=== PATIENT | male | born 1955 | race Caucasian/White ===

== ENCOUNTER 2016-10-24 16:03 | Inpatient (IN) | payer MEDICARE, MEDICAID ==
[~2016-10-24 16:03] MED LIST: Diltiazem 30 mg Tab PO SCH
[2016-10-24 16:23] VITALS: BP 138/95
[2016-10-24] MEDS ORDERED: Potassium Chloride Elixir 20 mEq /15 mL UDC PO ONE (16:43)
[2016-10-24] MEDS ORDERED: Potassium Chloride Elixir 20 mEq /15 mL UDC GT ONE (16:43)
--- NOTE | 2016-10-24 16:46 | ED Physician Chart ---
Chief Complaint/HPI - Patient Information Date Seen:: 10/24/16 Time Seen:: 16:33 Chief Complaint:: LOW POTASSIUM History of Present Illness:: THIS IS A 60 YO MALE WHO WAS SENT HERE FOR EVALUATION AND TREATMENT OF HIS LOW POTASSIUM. HE STATES THAT HE HAS HYPERTENSION, DIABETES MELLITUS, COPD, MAJOR DEPRESSIVE DISORDER AND HEART DISEASE. HE SMOKES AND STATES THAT HE HAS SIGNIFICANT HEART DISEASE. HE HAS IN THE PAST ABUSED ALCOHOL. TODAY HE HAS NO CHEST PAIN OR ABDOMINAL PAIN. Allergies:: Allergies Allergy/AdvReac Type Severity Reaction Status Date / Time No Known Allergies Allergy Verified 10/24/16 16:17 Vitals:: Vital Signs - 8 hr 10/24/16 16:23 BP 138/95 Historian:: Patient, Medical Records Review:: Nurse's Note Reviewed, Transfer documents Reviewed Review of Systems - Review of Systems General/Constitutional: No fever, No chills, No weight loss, No weakness, No diaphoresis, No edema, No loss of appetite Skin: No skin lesions, No rash, No bruising Head: No headache, No light-headedness Eyes: No loss of vision, No pain, No diplopia ENT: No earache, No nasal drainage, No sore throat, No tinnitus Neck: No neck pain, No swelling, No thyromegaly, No stiffness, No mass noted Cardio Vascular: No chest pain, No palpitations, No PND, No orthopnea, No edema Pulmonary: No SOB, No cough, No sputum, No wheezing GI: No nausea, No vomiting, No diarrhea, No pain, No melena, No hematochezia, No constipation, No hematemesis G/U: No dysuria, No frequency, No hematuria Musculoskeletal: No bone or joint pain, No back pain, No muscle pain Endocrine: No polyuria, No polydipsia Psychiatric: No prior psych history, No depression, No anxiety, No suicidal ideation Hematopoietic: No bruising, No lymphadenopathy Allergic/Immuno: No urticaria, No angioedema Neurological: No syncope, No focal symptoms, No weakness, No paresthesia, No headache, No seizure, No dizziness, No confusion, No vertigo Past Medical History - Past Medical History Obtainable: Yes Past Medical History: HTN, DM, CAD, Asthma/COPD, Dyslipidemia, Dementia Family History: Heart disease, Diabetes [place] Social History: Smoker, Alcohol, No Drug Use Surgical History: other (MULTIPLE SURGERIES OF THE RIGHT LOWER LEG.) Psychiatricy History: Depression Family Medical History - Family Member Mother History Unknown: Yes Physical Exam - Physical Examination General/Constitutional: Awake, Well-developed, well-nourished, Alert, No distress, GCS 15, Non-toxic appearing, Ambulatory Head: Atraumatic Eyes: Lids, conjuctiva normal, PERRL, EOMI Skin: Nl inspection, No rash, No skin lesions, No ecchymosis, Well hydrated, No lymphadenopathy ENMT: External ears, nose nl, Nasal exam nl, Lips, teeth, gums nl Neck: Nontender, Full ROM w/o pain, No JVD, No nuchal rigidity, No bruit, No mass, No stridor Respiratory: Nl effort/Exclusion, Clear to Auscultation, No Wheeze/Rhonchi/Rales Cardio Vascular: RRR, No murmur, gallop, rubs, NL S1 S2 GI: No tenderness/rebounding/guarding, No organomegaly, No hernia, Normal BS's, Nondistended, No mass/bruits, No McBurney tenderness : No CVA tenderness Extremities: No tenderness or effusion, Full ROM, normal strength in all extremities, No edema, Normal digits & nails Neuro/Psych: Alert/oriented, DTR's symmetric, Normal sensory exam, Normal motor strength, Judgement/insight normal, Mood normal, Normal gait, No focal deficits Misc: normal gait, Normal back, No paraspinal tenderness Labs/Radiology/EKG Results - Lab Results Results: Laboratory Results - last 24 hr 10/24/16 10/24/16 10/24/16 16:50 16:50 16:50 WBC 12.5 H RBC 5.84 H Hgb 17.2 Hct 50.7 H MCV 86.9 MCH 29.5 MCHC Differential 34.0 RDW 14.2 Plt Count 244 MPV 8.5 Neutrophils % 60.4 Lymphocytes % 27.3 Monocytes % 10.8 H Eosinophils % 1.0 Basophils % 0.5 PTT (Actin FS) 23.9 L Sodium 135 L Potassium 2.5 L* Chloride 91 L Carbon Dioxide 34.9 H Anion Gap 11.6 BUN 24 Creatinine 1.3 Est GFR ( Amer) > 60.0 Est GFR (Non-Af Amer) 59.6 BUN/Creatinine Ratio 18.5 Glucose 123 H Calcium 10.2 Total Bilirubin 1.4 H AST 25 ALT 17 Alkaline Phosphatase 111 H Troponin I Total Protein 8.1 Albumin 4.7 Globulin 3.4 Albumin/Globulin Ratio 1.4 10/24/16 16:50 WBC RBC Hgb Hct MCV MCH MCHC Differential RDW Plt Count MPV Neutrophils % Lymphocytes % Monocytes % Eosinophils % Basophils % PTT (Actin FS) Sodium Potassium Chloride Carbon Dioxide Anion Gap BUN Creatinine Est GFR ( Amer) Est GFR (Non-Af Amer) BUN/Creatinine Ratio Glucose Calcium Total Bilirubin AST ALT Alkaline Phosphatase Troponin I 0.02 Total Protein Albumin Globulin Albumin/Globulin Ratio - Radiology Results Results: CHEST X-RAY = FINDING CONSISTENT WITH COPD - EKG Interpretations EKG Time:: 16:33 Rhythm: SINUS [place]: LEFT AXIS Rate: 74 Comments:: POOR R WAVE PROGRESSION IN THE LATERAL LEADS ED Septic Shock - . Is Septic Shock (SBP<90, OR Lactate>4 mmol\L) present?: No - <6hrs of presentation: Vital Signs: Vital Signs - 8 hr 10/24/16 16:23 BP 138/95 Reassessment (Disposition) - Reassessment Reassessment Condition:: Unchanged - Diagnosis Diagnosis:: HYPOKALEMIA ELEVATED WHITE COUNT - Patient Disposition Discharge/Transfer:: Acute Care w/in this hosp Admitting Medical Physician:: Ramone York Condition at Disposition:: Stable
[2016-10-24] MEDS ORDERED: Potassium Chloride 20 mEq ER Tab PO ONE (16:55)
[2016-10-24] MEDS ORDERED: Potassium Chloride Elixir 20 mEq /15 mL UDC ONE (17:00)
[2016-10-24 17:09] LABS: % BASOPHILS 0.5 % (0.0-2.0); % LYMPHOCYTES 27.3 % (20.0-50.0); % MONOCYTES 10.8 % (2.0-10.0); % NEUTROPHILS 60.4 % (40.0-80.0); HEMATOCRIT 50.7 % (39.0-49.0); HEMOGLOBIN 17.2 gm/dL (13.2-17.3); MEAN CELL VOLUME 86.9 fl (80-99); MEAN CORPUSCULAR HEMOGLOBIN 29.5 pg (26.0-30.0); MEAN PLATELET VOLUME 8.5 fl; NEUTROPHILE ABSOLUTE 7.5 Th/cmm (1.8-8.0); PLATELET COUNT 244 Th/cmm (150-400); RED BLOOD COUNT 5.84 Mil/cmm (4.30-5.70); RED CELL DISTRIBUTION WIDTH 14.2 % (11.5-20.0)
[2016-10-24 17:24] LABS: ALB/GLOB RATIO 1.4 (1.0-1.8); ALKALINE PHOSPHATASE 111 U/L (34-104); ANION GAP 11.6 (7.0-16.0); BILIRUBIN,TOTAL 1.4 mg/dL (0.3-1.0); BUN - UREA NITROGEN 24 mg/dL (7-25); BUN/CREATININE RATIO 18.5; CALCIUM SERUM 10.2 mg/dL (8.6-10.3); CARBON DIOXIDE 34.9 mEq/L (21.0-31.0); CHLORIDE 91 mEq/L (98-107); CREATININE - SERUM 1.3 mg/dL (0.7-1.3); GLUCOSE 123 mg/dL (70-105); SGOT 25 U/L (13-39); SGPT/ALT 17 U/L (7-52); SODIUM SERUM 135 mEq/L (136-145)
[2016-10-24 17:27] LABS: WHITE BLOOD COUNT 12.5 Th/cmm (4.8-10.8)
[2016-10-24 17:28] LABS: POTASSIUM SERUM 2.5 mEq/L (3.5-5.1)
[2016-10-24 17:36] LABS: CHOLESTEROL 290 mg/dL (<200); TRIGLYCERIDES 161 mg/dL (<150)
[2016-10-24 18:03] LABS: URINE BILIRUBIN SMALL (NEGATIVE); URINE BLOOD TRACE (NEGATIVE); URINE COLOR YELLOW; URINE GLUCOSE (UA) NEGATIVE (NEGATIVE); URINE KETONE NEGATIVE (NEGATIVE)
[2016-10-24 18:04] LABS: URINE BACTERIA OCCASIONAL /hpf (NONE SEEN); URINE EPITHELIAL CELLS RARE /lpf (FEW); URINE PROTEIN TRACE mg/dL (NEGATIVE); URINE RBC 0-2 /hpf (0-5); URINE UROBILINOGEN 0.2 E.U./dL (0.2 - 1.0); URINE WBC 0-2 /hpf (0-5)
[2016-10-24] MEDS ORDERED: Hydrocodone/APAP 10 mg/325 mg Tab PO PRN (19:44)
[2016-10-24] MEDS ORDERED: D5-0.9NS w/40 mEq KCL 1,000 ML IV SCH (20:00)
[2016-10-24] MEDS: Ipratropium Neb 0.5 mg/2.5 mL UD IH SCH (20:16)
[2016-10-24] MEDS: Albuterol Nebulizer 2.5mg/3mL IH SCH (20:16)
[2016-10-24] MEDS: Levofloxacin 500mg/100mL 500 MG/100 ML BAG IV SCH (20:29)
[2016-10-24] MEDS: D5-0.45NS w/40 mEq KCL 1,000 ML IV SCH (22:31)
--- NOTE | 2016-10-25 04:55 | Admit Criteria Form ---
Admit Criteria Forms - Admit Criteria Diagnosis: HYPONATREMIA; HYPERNATREMIA; HYPOKALEMIA; HYPERKALEMIA; HYPOCALCEMIA; HYPERCALCEMIA Clinical Indications for Inpatient Care (Place 'X' for any and all applicable criteria): Ongoing inpatient care may be indicated for ANY ONE of the following [G](1)(2)(3 )(5): [ ]I. Hyponatremia with ANY ONE of the following: [ ]a) Sodium less than 130 mEq/L (mmol/L) (new) (6)(22) [ ]b) Sodium less than 135 mEq/L (mmol/L) with ANY ONE of the following: [ ]i) Severe medical etiology requiring inpatient management (eg, heart failure, hypovolemia) [ ]ii) Altered mental status [ ]iii) Seizures [ ]II. Hypernatremia with ANY ONE of the following: [ ]a) Sodium greater than 155 mEq/L (mmol/L) [ ]b) Sodium greater than 150 mEq/L (mmol/L) with ANY ONE of the following: [ ] i) Altered mental status [ ]ii) Seizures [ ]iii) Severe medical etiology (eg, hypovolemia, diabetes insipidus) [ ]iv) Severe weakness [ ]v) Severe medical etiology (eg, hemolysis, infection, drug overdose) [X ]III. Hypokalemia with ANY ONE of the following: [ ]a) Potassium less than 2.5 mEq/L (mmol/L) despite outpatient and emergency treatment [X ]b) Potassium less than 3.0 mEq/L (mmol/L) with ANY ONE of the following: [ ]i) Weakness [ ]ii) Cardiac abnormality (eg, arrhythmia, conduction disturbance) [ ]iii) Cardiac ischemia [ ]iv) Ileus [ ]v) Ongoing medical cause requiring inpatient management. ( e.g., acute renal wasting, SIADH) [X ]vi) Other severe symptoms [ ] IV. Hyperkalemia with ANY ONE of the following: [ ]a) Potassium greater than 6.5 mEq/L (mmol/L) [ ]b) Potassium greater than 5 mEq/L (mmol/L) with ANY ONE of the following: [ ]i) Severe ECG findings [H] [ ]ii) Acute worsening of renal failure (creatinine greater than 2.5 mg/dL (221 micromoles/L) or significant elevation for age and size) [ ] V. Hypocalcemia with ANY ONE of the following: [ ]a) Calcium less than 7 mg/dL (1.75 mmol/L) despite outpatient and emergency treatment(19) [ ]b) Calcium less than 8 mg/dL (2 mmol/L) with significant symptoms or findings; examples include: [ ]i) Cardiac abnormality (eg, arrhythmia or conduction disturbance) [ ]ii) Altered mental status [ ]iii) Seizures [ ]iv) Breathing difficulty [ ]v) Muscle spasms [ ]. Hypercalcemia with ANY ONE of the following: [ ]a) Calcium greater than 14 mg/dL (3.5 mmol/L) [ ]b) Calcium greater than 12 mg/dL (3 mmol/L) with ANY ONE of the following: [ ]i) Significant dehydration or hypovolemia as indicated by ANY ONE of the following(2): [ ]1. Clinically significant dehydration as indicated by ANY ONE of the following: [ ]A. Acute loss of weight from baseline (5% of body weight in adults, 9% in pediatric patients) [ ]B. Hemodynamic instability [ ]C. Acute renal failure [ ]D. Serum sodium greater than 150 mEq/L (mmol/L) [ ]2) Dehydration that is persistent indicated by ALL of the following: [ ]A. Oral rehydration therapy not tolerated or insufficient to adequately correct dehydration [ ]B. Appropriate intravenous treatment (eg, fluids ) does not readily correct dehydration ie, after 12 to 24 hours of treatment) [ ]ii) Significant symptoms or findings; examples include: [ ]1) Altered mental status [ ]2) Cardiac abnormality (eg, arrhythmia, conduction disturbance) [ ]3) Cardiac abnormality (eg, arrhythmia, conduction disturbance) The original [employer] content created by [employer] has been revised. The portions of the content which have been revised are identified through the use of italic text or in bold, and [facility] has neither reviewed nor approved the modified material. All other unmodified content is copyright [facility] Please see references footnoted in the original [employer] edition 2016 Admit Criteria Met?: Yes
[2016-10-25 07:09] LABS: % BASOPHILS 0.8 % (0.0-2.0); % EOSINOPHILS 1.8 % (0.0-5.0); % MONOCYTES 11.2 % (2.0-10.0); % NEUTROPHILS 55.2 % (40.0-80.0); HEMATOCRIT 46.9 % (39.0-49.0); HEMOGLOBIN 15.6 gm/dL (13.2-17.3); MEAN CORPUSCULAR HGB CONC 33.4 pg (28.0-36.0); MEAN PLATELET VOLUME 8.6 fl; NEUTROPHILE ABSOLUTE 5.2 Th/cmm (1.8-8.0); PLATELET COUNT 219 Th/cmm (150-400); RED BLOOD COUNT 5.39 Mil/cmm (4.30-5.70); RED CELL DISTRIBUTION WIDTH 14.7 % (11.5-20.0)
[2016-10-25 07:17] LABS: WHITE BLOOD COUNT 9.5 Th/cmm (4.8-10.8)
[2016-10-25 07:26] LABS: ANION GAP 10.3 (7.0-16.0); BUN - UREA NITROGEN 23 mg/dL (7-25); BUN/CREATININE RATIO 20.9; CALCIUM SERUM 9.4 mg/dL (8.6-10.3); CARBON DIOXIDE 32.3 mEq/L (21.0-31.0); CHLORIDE 97 mEq/L (98-107); CREATININE - SERUM 1.1 mg/dL (0.7-1.3); GLUCOSE 122 mg/dL (70-105); MAGNESIUM 2.1 mg/dL (1.9-2.7); SODIUM SERUM 137 mEq/L (136-145)
[2016-10-25] MEDS: Albuterol Nebulizer 2.5mg/3mL IH SCH (07:36)
[2016-10-25] MEDS: Ipratropium Neb 0.5 mg/2.5 mL UD IH SCH (07:37)
[2016-10-25 07:43] LABS: POTASSIUM SERUM 2.6 mEq/L (3.5-5.1)
[2016-10-25 07:49] LABS: BNP 30.6 pg/mL (5.0-100.0)
[2016-10-25] MEDS: Vitamin B Complex w/Vitamin C Tab PO SCH (08:24)
[2016-10-25] MEDS: Aspirin 81mg Chewable Tab PO SCH (08:24)
[2016-10-25] MEDS: Escitalopram Oxalate 5 mg Tab PO SCH (08:29)
[2016-10-25] MEDS: Atorvastatin Calcium 10 MG TAB PO SCH (08:29)
[2016-10-25] MEDS ORDERED: Potassium Chloride 20 mEq ER Tab PO SCH (09:00)
--- NOTE | 2016-10-25 09:13 | Diagnostic Imaging Report ---
Portable chest x-ray History: Pain Allowing for portable technique the heart size is normal. No focal pulmonary parenchymal processes. No hilar or mediastinal abnormalities. Impression: No acute abnormalities.
--- NOTE | 2016-10-25 09:38 | Internal Medicine Prog Note ---
Internal Medicine Subjective - Subjective Service Date: 10/25/16 ([id number]) Internal Medicine Objective - Results Result Diagrams: 10/25/16 06:15 10/25/16 06:15 Recent Labs: Laboratory Last Values WBC 9.5 Th/cmm (4.8-10.8) D 10/25/16 06:15 RBC 5.39 Mil/cmm (4.30-5.70) 10/25/16 06:15 Hgb 15.6 gm/dL (13.2-17.3) 10/25/16 06:15 Hct 46.9 % (39.0-49.0) 10/25/16 06:15 MCV 87.0 fl (80-99) 10/25/16 06:15 MCH 29.0 pg (26.0-30.0) 10/25/16 06:15 MCHC Differential 33.4 pg (28.0-36.0) 10/25/16 06:15 RDW 14.7 % (11.5-20.0) 10/25/16 06:15 Plt Count 219 Th/cmm (150-400) 10/25/16 06:15 MPV 8.6 fl 10/25/16 06:15 Neutrophils % 55.2 % (40.0-80.0) 10/25/16 06:15 Lymphocytes % 31.0 % (20.0-50.0) 10/25/16 06:15 Monocytes % 11.2 % (2.0-10.0) H 10/25/16 06:15 Eosinophils % 1.8 % (0.0-5.0) 10/25/16 06:15 Basophils % 0.8 % (0.0-2.0) 10/25/16 06:15 PTT (Actin FS) 23.9 SECONDS (26.0-38.0) L 10/24/16 16:50 Sodium 137 mEq/L (136-145) 10/25/16 06:15 Potassium 2.6 mEq/L (3.5-5.1) L* 10/25/16 06:15 Chloride 97 mEq/L (98-107) L 10/25/16 06:15 Carbon Dioxide 32.3 mEq/L (21.0-31.0) H 10/25/16 06:15 Anion Gap 10.3 (7.0-16.0) 10/25/16 06:15 BUN 23 mg/dL (7-25) 10/25/16 06:15 Creatinine 1.1 mg/dL (0.7-1.3) 10/25/16 06:15 Est GFR ( Amer) > 60.0 ml/min (>90) 10/25/16 06:15 Est GFR (Non-Af Amer) > 60.0 ml/min 10/25/16 06:15 BUN/Creatinine Ratio 20.9 10/25/16 06:15 Glucose 122 mg/dL (70-105) H 10/25/16 06:15 Hemoglobin A1c % 5.5 % (4.0-6.0) 10/25/16 06:15 Calcium 9.4 mg/dL (8.6-10.3) 10/25/16 06:15 Magnesium 2.1 mg/dL (1.9-2.7) 10/25/16 06:15 Total Bilirubin 1.4 mg/dL (0.3-1.0) H 10/24/16 16:50 AST 25 U/L (13-39) 10/24/16 16:50 ALT 17 U/L (7-52) 10/24/16 16:50 Alkaline Phosphatase 111 U/L (34-104) H 10/24/16 16:50 Ammonia 79 umol/L (16-53) H 10/25/16 06:15 Troponin I 0.02 ng/mL (0.01-0.05) 10/24/16 16:50 B-Natriuretic Peptide 30.6 pg/mL (5.0-100.0) 10/25/16 06:15 Total Protein 8.1 gm/dL (6.0-8.3) 10/24/16 16:50 Albumin 4.7 gm/dL (4.2-5.5) 10/24/16 16:50 Globulin 3.4 gm/dL 10/24/16 16:50 Albumin/Globulin Ratio 1.4 (1.0-1.8) 10/24/16 16:50 Triglycerides 161 mg/dL (<150) H 10/24/16 16:50 Cholesterol 290 mg/dL (<200) H 10/24/16 16:50 LDL Cholesterol Direct 197 mg/dL (75-193) H 10/24/16 16:50 HDL Cholesterol 76 mg/dL (23-92) 10/24/16 16:50 TSH 0.46 uIU/ml (0.34-5.60) 10/24/16 16:50 Urine Source CLEAN C 10/24/16 17:25 Urine Color YELLOW 10/24/16 17:25 Urine Clarity CLEAR (CLEAR) 10/24/16 17:25 Urine pH 7.0 10/24/16 17:25 Ur Specific [place] 1.015 (1.005-1.030) 10/24/16 17:25 Urine Protein TRACE mg/dL (NEGATIVE) 10/24/16 17:25 Urine Glucose (UA) NEGATIVE mg/dL (NEGATIVE) 10/24/16 17:25 Urine Ketones NEGATIVE mg/dL (NEGATIVE) 10/24/16 17:25 Urine Blood TRACE (NEGATIVE) 10/24/16 17:25 Urine Nitrate NEGATIVE (NEGATIVE) 10/24/16 17:25 Urine Bilirubin SMALL (NEGATIVE) H 10/24/16 17:25 Urine Urobilinogen 0.2 E.U./dL (0.2 - 1.0) 10/24/16 17:25 Ur Leukocyte Esterase NEGATIVE (NEGATIVE) 10/24/16 17:25 Urine RBC 0-2 /hpf (0-5) H 10/24/16 17:25 Urine WBC 0-2 /hpf (0-5) 10/24/16 17:25 Ur Epithelial Cells RARE /lpf (FEW) 10/24/16 17:25 Urine Bacteria OCCASIONAL /hpf (NONE SEEN) 10/24/16 17:25 RPR NONREACTIVE (NONREACTIVE) 10/24/16 16:50 - Physical Exam Vitals and I&O: Vital Signs Temp 97.5 F 10/25/16 08:00 Pulse 88 10/25/16 08:23 Resp 19 10/25/16 08:00 BP 120/94 10/25/16 08:00 Pulse Ox 95 10/25/16 08:00 Intake & Output 10/24/16 10/25/16 10/25/16 18:59 06:59 18:59 Intake Total 460 Balance 460 Intake: Intake, IV Amount 100 Levofloxacin 500mg/100mL 100 500 mg In 100 ml @ 100 mls/hr IV Q24HR [facility] Rx#: [id number] Oral 360 Other: # Voids 2 Active Medications: Current Medications Acetaminophen (Tylenol) 650 mg PO Q4HR PRN PRN Reason: Pain or Fever >101 Stop: 12/23/16 19:46 Acetaminophen/Hydrocodone Bitart ([place] 10 Mg/325 Mg) 1 tab PO Q6H PRN PRN Reason: Pain (Moderate) Stop: 12/23/16 19:43 Albuterol Sulfate (Albuterol 2.5mg/3ml Neb Ud) 2.5 mg IH QID [facility] Stop: 12/23/16 20:59 Last Admin: 10/25/16 07:36 Dose: 2.5 mg Aspirin (Aspirin Chewable) 81 mg PO DAILY [facility] Stop: 12/24/16 08:59 Last Admin: 10/25/16 08:24 Dose: 81 mg Atorvastatin Calcium (Lipitor) 20 mg PO DAILY [facility] PRN Reason: Protocol Stop: 12/24/16 08:59 Last Admin: 10/25/16 08:29 Dose: 20 mg Diltiazem HCl (Cardizem) 60 mg PO Q8H [facility] Stop: 12/23/16 05:59 Last Admin: 10/25/16 08:23 Dose: 60 mg Docusate Sodium (Colace) 100 mg PO DAILY [facility] Stop: 12/24/16 08:59 Last Admin: 10/25/16 08:23 Dose: 100 mg Escitalopram Oxalate (Lexapro) 5 mg PO DAILY [facility] PRN Reason: Protocol Stop: 12/24/16 08:59 Last Admin: 10/25/16 08:29 Dose: 5 mg Folic Acid (Folate) 1 mg PO DAILY [facility] Stop: 12/24/16 08:59 Last Admin: 10/25/16 08:24 Dose: 1 mg Heparin Sodium (Porcine) (Heparin) 5,000 units SUBQ Q12HR [facility] Stop: 12/23/16 20:59 Last Admin: 10/25/16 08:25 Dose: 5,000 units Levofloxacin (Levaquin Pb) 500 mg in 100 mls @ 100 mls/hr IV Q24HR [facility] Stop: 12/23/16 19:59 Last Infusion: 10/24/16 21:29 Dose: Infused Potassium Chloride/Dextrose/Sod Cl (D5-0.45ns W/40 Meq Kcl) 1,000 mls @ 80 mls/ hr IV .[id number] [facility] Stop: 12/23/16 22:19 Last Admin: 10/24/16 22:31 Dose: 80 mls/hr Ipratropium [place] (Atrovent Neb 0.5mg/2.5ml) 0.5 mg IH QID [facility] Stop: 12/23/16 20:59 Last Admin: 10/25/16 07:37 Dose: 0.5 mg Ondansetron HCl (Zofran) 4 mg IV Q8H PRN PRN Reason: Nausea / Vomiting Stop: 12/23/16 19:46 Potassium Chloride (Klor-Con) 20 meq PO DAILY [facility] Stop: 12/24/16 08:59 Last Admin: 10/25/16 08:24 Dose: 20 meq Vitamin B Complex/Vit C/Folic Acid (Vitamin B Complex W/Vitamin C) 1 tab PO DAILY [facility] Stop: 12/24/16 08:59 Last Admin: 10/25/16 08:24 Dose: 1 tab Zolpidem Tartrate (Ambien) 10 mg PO HS PRN PRN Reason: Insomnia Stop: 12/23/16 19:45 Internal Medicine Assmt/Plan - Assessment Assessment: Severe Hypokalemia Failure to thrive Sepsis Obesity
[2016-10-25] MEDS: Ipratropium Neb 0.5 mg/2.5 mL UD HHN SCH ×3 (11:10→19:43)
[2016-10-25] MEDS: Albuterol Nebulizer 2.5mg/3mL HHN SCH ×3 (11:10→19:43)
--- NOTE | 2016-10-25 12:01 | History & Physical ---
CHIEF COMPLAINT: Low potassium. HISTORY OF PRESENT ILLNESS: This is a 60-year-old male who is a resident of [facility] who was brought here to [facility] due to low potassium. The patient denies any fevers, any chills, any chest pain or any abdominal pain. PAST MEDICAL HISTORY: Hypertension, cardiac arrest, toxic encephalopathy, chronic embolism, type 2 diabetes, metabolic encephalopathy, alcohol abuse, ____ hematogenous osteomyelitis. SURGICAL HISTORY: Multiple surgeries of the right lower leg. SOCIAL HISTORY: The patient is a [facility] resident, requiring 24-hour nursing care. FAMILY HISTORY: Noncontributory. REVIEW OF SYSTEMS: GENERAL: Denies any fevers, any chills. CARDIOVASCULAR: Denies any chest pain or any palpitations. RESPIRATORY: Denies any shortness of breath or cough. GASTROINTESTINAL: Denies any nausea, vomiting, abdominal pain. GENITOURINARY: Denies any dysuria. All other systems are reviewed by me and are negative. PHYSICAL EXAMINATION: GENERAL: The patient is well developed, well nourished, no acute distress. VITAL SIGNS: Temperature 97.5, heart rate 88, blood pressure 120/94, respirations 19, O2 95%. HEENT: Head; normocephalic, atraumatic. NECK: No mass. LUNGS: Clear bilaterally. HEART: Regular rhythm. ABDOMEN: Soft, nontender. LABORATORY DATA: WBC 9.5, H and H 15.6 and 46.9. Sodium 137, potassium 2.6, chloride 97, carbon dioxide 32.3, BUN 23, creatinine 1.1. DIAGNOSTICS: The patient had a chest x-ray done and the impression is, no acute abnormalities. ASSESSMENT: Severe hypokalemia, failure to thrive, sepsis, hypertension, morbid obesity. PLAN: The patient to be admitted to the telemetry unit. The patient will be kept on IV fluids with 40 mEq. We will monitor the patient's electrolytes level. The patient will be on IV antibiotics of Levaquin. We will continue to monitor the patient. JOB# [id number]
[2016-10-25] MEDS: D5-0.45NS w/40 mEq KCL 1,000 ML IV SCH (12:17)
[2016-10-25 12:42] LABS: ANION GAP 10.9 (7.0-16.0); BUN - UREA NITROGEN 22 mg/dL (7-25); CALCIUM SERUM 9.6 mg/dL (8.6-10.3); CARBON DIOXIDE 29.9 mEq/L (21.0-31.0); CHLORIDE 95 mEq/L (98-107); CREATININE - SERUM 1.1 mg/dL (0.7-1.3); GLUCOSE 125 mg/dL (70-105); SODIUM SERUM 133 mEq/L (136-145)
[2016-10-25 12:48] LABS: POTASSIUM SERUM 2.8 mEq/L (3.5-5.1)
[2016-10-25] MEDS: Diltiazem 30 mg Tab PO SCH ×2 (16:32→20:08)
[2016-10-25] MEDS ORDERED: Potassium Chloride 20 mEq ER Tab PO ONE (17:00)
[2016-10-25] MEDS: Levofloxacin 500mg/100mL 500 MG/100 ML BAG IV SCH (19:47)
[2016-10-26] MEDS: D5-0.45NS w/40 mEq KCL 1,000 ML IV SCH ×2 (03:00→15:46)
[2016-10-26] MEDS: Diltiazem 30 mg Tab PO SCH ×3 (04:47→20:11)
[2016-10-26 07:12] LABS: % BASOPHILS 0.5 % (0.0-2.0); % EOSINOPHILS 2.6 % (0.0-5.0); % LYMPHOCYTES 24.1 % (20.0-50.0); % MONOCYTES 11.7 % (2.0-10.0); % NEUTROPHILS 61.1 % (40.0-80.0); HEMATOCRIT 44.5 % (39.0-49.0); HEMOGLOBIN 15.2 gm/dL (13.2-17.3); MEAN CELL VOLUME 85.9 fl (80-99); MEAN CORPUSCULAR HEMOGLOBIN 29.4 pg (26.0-30.0); MEAN CORPUSCULAR HGB CONC 34.3 pg (28.0-36.0); MEAN PLATELET VOLUME 8.5 fl; NEUTROPHILE ABSOLUTE 5.9 Th/cmm (1.8-8.0); PLATELET COUNT 198 Th/cmm (150-400); RED BLOOD COUNT 5.18 Mil/cmm (4.30-5.70); RED CELL DISTRIBUTION WIDTH 14.5 % (11.5-20.0); WHITE BLOOD COUNT 9.5 Th/cmm (4.8-10.8)
[2016-10-26] MEDS: Ipratropium Neb 0.5 mg/2.5 mL UD HHN SCH ×4 (07:12→19:23)
[2016-10-26] MEDS: Albuterol Nebulizer 2.5mg/3mL HHN SCH ×4 (07:12→19:23)
[2016-10-26 07:29] LABS: ANION GAP 5.3 (7.0-16.0); BUN - UREA NITROGEN 17 mg/dL (7-25); CALCIUM SERUM 9.6 mg/dL (8.6-10.3); CARBON DIOXIDE 28.7 mEq/L (21.0-31.0); CHLORIDE 103 mEq/L (98-107); GLUCOSE 137 mg/dL (70-105); MAGNESIUM 1.9 mg/dL (1.9-2.7); SODIUM SERUM 134 mEq/L (136-145)
[2016-10-26] MEDS: Atorvastatin Calcium 10 MG TAB PO SCH (08:22)
[2016-10-26] MEDS: Escitalopram Oxalate 5 mg Tab PO SCH (08:23)
[2016-10-26] MEDS: Vitamin B Complex w/Vitamin C Tab PO SCH (08:23)
[2016-10-26] MEDS: Aspirin 81mg Chewable Tab PO SCH (08:24)
[2016-10-26] MEDS: Potassium Chloride 20 mEq ER Tab PO SCH ×2 (08:24→16:41)
[2016-10-26] MEDS ORDERED: Potassium Chloride 20 mEq ER Tab PO ONE (14:31)
--- NOTE | 2016-10-26 14:31 | Internal Medicine Prog Note ---
Internal Medicine Subjective - Subjective Service Date: 10/26/16 Patient seen and examined:: with staff Patient is:: awake Per staff patient is:: no adverse event Internal Medicine Objective - Results Result Diagrams: 10/26/16 06:37 10/26/16 06:37 Recent Labs: Laboratory Last Values WBC 9.5 Th/cmm (4.8-10.8) 10/26/16 06:37 RBC 5.18 Mil/cmm (4.30-5.70) 10/26/16 06:37 Hgb 15.2 gm/dL (13.2-17.3) 10/26/16 06:37 Hct 44.5 % (39.0-49.0) 10/26/16 06:37 MCV 85.9 fl (80-99) 10/26/16 06:37 MCH 29.4 pg (26.0-30.0) 10/26/16 06:37 MCHC Differential 34.3 pg (28.0-36.0) 10/26/16 06:37 RDW 14.5 % (11.5-20.0) 10/26/16 06:37 Plt Count 198 Th/cmm (150-400) 10/26/16 06:37 MPV 8.5 fl 10/26/16 06:37 Neutrophils % 61.1 % (40.0-80.0) 10/26/16 06:37 Lymphocytes % 24.1 % (20.0-50.0) 10/26/16 06:37 Monocytes % 11.7 % (2.0-10.0) H 10/26/16 06:37 Eosinophils % 2.6 % (0.0-5.0) 10/26/16 06:37 Basophils % 0.5 % (0.0-2.0) 10/26/16 06:37 PTT (Actin FS) 23.9 SECONDS (26.0-38.0) L 10/24/16 16:50 Sodium 134 mEq/L (136-145) L 10/26/16 06:37 Potassium 3.0 mEq/L (3.5-5.1) L 10/26/16 06:37 Chloride 103 mEq/L (98-107) 10/26/16 06:37 Carbon Dioxide 28.7 mEq/L (21.0-31.0) 10/26/16 06:37 Anion Gap 5.3 (7.0-16.0) L 10/26/16 06:37 BUN 17 mg/dL (7-25) 10/26/16 06:37 Creatinine 1.0 mg/dL (0.7-1.3) 10/26/16 06:37 Est GFR ( Amer) > 60.0 ml/min (>90) 10/26/16 06:37 Est GFR (Non-Af Amer) > 60.0 ml/min 10/26/16 06:37 BUN/Creatinine Ratio 17.0 10/26/16 06:37 Glucose 137 mg/dL (70-105) H 10/26/16 06:37 Hemoglobin A1c % 5.5 % (4.0-6.0) 10/25/16 06:15 Calcium 9.6 mg/dL (8.6-10.3) 10/26/16 06:37 Magnesium 1.9 mg/dL (1.9-2.7) 10/26/16 06:37 Total Bilirubin 1.4 mg/dL (0.3-1.0) H 10/24/16 16:50 AST 25 U/L (13-39) 10/24/16 16:50 ALT 17 U/L (7-52) 10/24/16 16:50 Alkaline Phosphatase 111 U/L (34-104) H 10/24/16 16:50 Ammonia 79 umol/L (16-53) H 10/25/16 06:15 Troponin I 0.02 ng/mL (0.01-0.05) 10/24/16 16:50 B-Natriuretic Peptide 30.6 pg/mL (5.0-100.0) 10/25/16 06:15 Total Protein 8.1 gm/dL (6.0-8.3) 10/24/16 16:50 Albumin 4.7 gm/dL (4.2-5.5) 10/24/16 16:50 Globulin 3.4 gm/dL 10/24/16 16:50 Albumin/Globulin Ratio 1.4 (1.0-1.8) 10/24/16 16:50 Triglycerides 161 mg/dL (<150) H 10/24/16 16:50 Cholesterol 290 mg/dL (<200) H 10/24/16 16:50 LDL Cholesterol Direct 197 mg/dL (75-193) H 10/24/16 16:50 HDL Cholesterol 76 mg/dL (23-92) 10/24/16 16:50 TSH 0.46 uIU/ml (0.34-5.60) 10/24/16 16:50 Urine Source CLEAN C 10/24/16 17:25 Urine Color YELLOW 10/24/16 17:25 Urine Clarity CLEAR (CLEAR) 10/24/16 17:25 Urine pH 7.0 10/24/16 17:25 Ur Specific [place] 1.015 (1.005-1.030) 10/24/16 17:25 Urine Protein TRACE mg/dL (NEGATIVE) 10/24/16 17:25 Urine Glucose (UA) NEGATIVE mg/dL (NEGATIVE) 10/24/16 17:25 Urine Ketones NEGATIVE mg/dL (NEGATIVE) 10/24/16 17:25 Urine Blood TRACE (NEGATIVE) 10/24/16 17:25 Urine Nitrate NEGATIVE (NEGATIVE) 10/24/16 17:25 Urine Bilirubin SMALL (NEGATIVE) H 10/24/16 17:25 Urine Urobilinogen 0.2 E.U./dL (0.2 - 1.0) 10/24/16 17:25 Ur Leukocyte Esterase NEGATIVE (NEGATIVE) 10/24/16 17:25 Urine RBC 0-2 /hpf (0-5) H 10/24/16 17:25 Urine WBC 0-2 /hpf (0-5) 10/24/16 17:25 Ur Epithelial Cells RARE /lpf (FEW) 10/24/16 17:25 Urine Bacteria OCCASIONAL /hpf (NONE SEEN) 10/24/16 17:25 RPR NONREACTIVE (NONREACTIVE) 10/24/16 16:50 - Physical Exam Vitals and I&O: Vital Signs Temp 98.6 F 10/26/16 12:00 Pulse 87 10/26/16 12:00 Resp 20 10/26/16 12:00 BP 122/70 10/26/16 12:00 Pulse Ox 98 10/26/16 12:00 Intake & Output 10/25/16 10/26/16 10/26/16 18:59 06:59 18:59 Intake Total 1000 1800 Balance 1000 1800 Intake: Intake, IV Amount 1000 1100 D5-0.45NS w/40 mEq KCL 1, 1000 1000 000 ml @ 80 mls/hr IV . [id number] [facility] Rx#:[id number] Levofloxacin 500mg/100mL 100 500 mg In 100 ml @ 100 mls/hr IV Q24HR [facility] Rx#: [id number] Oral 700 Other: # Voids 1 Active Medications: Current Medications Acetaminophen (Tylenol) 650 mg PO Q4HR PRN PRN Reason: Pain or Fever >101 Stop: 12/23/16 19:46 Acetaminophen/Hydrocodone Bitart ([place] 10 Mg/325 Mg) 1 tab PO Q6H PRN PRN Reason: Pain (Moderate) Stop: 12/23/16 19:43 Albuterol Sulfate (Albuterol 2.5mg/3ml Neb Ud) 2.5 mg HHN QIDRT [facility] Stop: 12/23/16 20:59 Last Admin: 10/26/16 10:58 Dose: 2.5 mg Aspirin (Aspirin Chewable) 81 mg PO DAILY [facility] Stop: 12/24/16 08:59 Last Admin: 10/26/16 08:24 Dose: 81 mg Atorvastatin Calcium (Lipitor) 20 mg PO DAILY [facility] PRN Reason: Protocol Stop: 12/24/16 08:59 Last Admin: 10/26/16 08:22 Dose: 20 mg Diltiazem HCl (Cardizem) 60 mg PO Q8HR [facility] Stop: 12/24/16 13:59 Last Admin: 10/26/16 04:47 Dose: 60 mg Docusate Sodium (Colace) 100 mg PO DAILY [facility] Stop: 12/24/16 08:59 Last Admin: 10/26/16 08:23 Dose: 100 mg Escitalopram Oxalate (Lexapro) 5 mg PO DAILY [facility] PRN Reason: Protocol Stop: 12/24/16 08:59 Last Admin: 10/26/16 08:23 Dose: 5 mg Folic Acid (Folate) 1 mg PO DAILY [facility] Stop: 12/24/16 08:59 Last Admin: 10/26/16 08:24 Dose: 1 mg Heparin Sodium (Porcine) (Heparin) 5,000 units SUBQ Q12HR [facility] Stop: 12/23/16 20:59 Last Admin: 10/26/16 08:13 Dose: Not Given Levofloxacin (Levaquin Pb) 500 mg in 100 mls @ 100 mls/hr IV Q24HR [facility] Stop: 12/23/16 19:59 Last Infusion: 10/25/16 20:47 Dose: Infused Potassium Chloride/Dextrose/Sod Cl (D5-0.45ns W/40 Meq Kcl) 1,000 mls @ 80 mls/ hr IV .[id number] [facility] Stop: 12/23/16 22:19 Last Admin: 10/26/16 03:00 Dose: 80 mls/hr Ipratropium [place] (Atrovent Neb 0.5mg/2.5ml) 0.5 mg HHN QIDRT [facility] Stop: 12/23/16 20:59 Last Admin: 10/26/16 10:58 Dose: 0.5 mg Mupirocin (Bactroban Oint) 1 appl NS BID [facility] Stop: 10/31/16 09:01 Ondansetron HCl (Zofran) 4 mg IV Q8H PRN PRN Reason: Nausea / Vomiting Stop: 12/23/16 19:46 Potassium Chloride (Klor-Con) 20 meq PO BID [facility] Stop: 12/25/16 08:59 Last Admin: 10/26/16 08:24 Dose: 20 meq Vitamin B Complex/Vit C/Folic Acid (Vitamin B Complex W/Vitamin C) 1 tab PO DAILY [facility] Stop: 12/24/16 08:59 Last Admin: 10/26/16 08:23 Dose: 1 tab Zolpidem Tartrate (Ambien) 10 mg PO HS PRN PRN Reason: Insomnia Stop: 12/23/16 19:45 General: alert HEENT: NC/AT, PERRLA Neck: Supple Lungs: CTAB Cardiovascular: RRR, Normal S1, without murmur Abdomen: soft non-tender, non-distended Extremities: clear Internal Medicine Assmt/Plan - Assessment Assessment: Severe Hypokalemia Failure to thrive Sepsis Obesity - Plan Plan: empiric iv antibiotics monitor for fever monitor i+o f/u labs in am continue current rx Nutritional Asmnt/Malnutr-PDOC - Dietary Evaluation Malnutrition Findings (Please click <Entered> for more info): Nutritional Asmnt/Malnutrition Start: 10/25/16 11: 51 Text: Status: Complete Freq: Document 10/25/16 11:51 JIGAR (Rec: 10/25/16 11:58 JIGAR [id number]) Nutritional Asmnt/Malnutrition Patient General Information Nutritional Screening High Risk Screening Diagnosis Sepsis, hypokalemia, failure to thrive Pertinent Medical Hx/Surgical Hx HTN, DM, COPD, major depressive disorder, heart disease Subjective Information Pt sitting up in bed at time of visit, reports NKFA and no cultural/religous diet prefernces. Pt states good appetite and denies recent weight loss, Pt with no nutrition concerns at this time. Pertinent Medications colace, folate, zofran, Vit B complex with vit C Pertinent Labs glucose 122, Na 137, K 2.6, Cl 97, Co2 32.2, BUN 23, Cr 1.1, Ca 9.4 Nutritional Hx/Data Height 6 ft Height (Calculated Centimeters) 182.9 Current Weight (lbs) 210 lb Weight (Calculated Kilograms) 95.3 Weight (Calculated Grams) 65882.4 Recent Weight Change No Weight Status Overweight GI Symptoms GI Symptoms None Cultural/Ethnic/Christianity Belief Pt denies Usual diet at home unknown Skin Integrity/Comment: alisha score 22 Current %PO Good (75-100%) Estimated Nutritional Goals BEE in Kcals: Using Current wt Calories/Kcals/Kg 25-30kcals/kg Kcals Calculated 2375-2850kcals/day Protein: Using Current wt Protein g/kg/kg Protein Calculated 95 Fluid: ml 2375-2850ml/day Nutritional Problem 1. Problem Problem Altered nutrition related lab value Etiology related to cardiac dysfunction Signs/Symptoms: as evidenced by K 2.6. Intervention/Recommendation Comments Recommend continuing Regular diet and recommend moderate- high potassium foods to help with lab values. Expected Outcomes/Goals Expected Outcomes/Goals PO intake >75%
[2016-10-26] MEDS: Levofloxacin 500mg/100mL 500 MG/100 ML BAG IV SCH (19:53)
[2016-10-27] MEDS: Diltiazem 30 mg Tab PO SCH ×2 (05:14→13:31)
[2016-10-27] MEDS: Albuterol Nebulizer 2.5mg/3mL HHN SCH ×3 (06:35→14:29)
[2016-10-27] MEDS: Ipratropium Neb 0.5 mg/2.5 mL UD HHN SCH ×3 (06:35→14:29)
[2016-10-27 07:09] LABS: % BASOPHILS 0.9 % (0.0-2.0); % EOSINOPHILS 5.1 % (0.0-5.0); % LYMPHOCYTES 24.7 % (20.0-50.0); % NEUTROPHILS 58.3 % (40.0-80.0); HEMOGLOBIN 13.8 gm/dL (13.2-17.3); MEAN CELL VOLUME 85.4 fl (80-99); MEAN CORPUSCULAR HEMOGLOBIN 29.6 pg (26.0-30.0); MEAN CORPUSCULAR HGB CONC 34.6 pg (28.0-36.0); MEAN PLATELET VOLUME 8.8 fl; NEUTROPHILE ABSOLUTE 5.1 Th/cmm (1.8-8.0); PLATELET COUNT 210 Th/cmm (150-400); RED BLOOD COUNT 4.66 Mil/cmm (4.30-5.70); RED CELL DISTRIBUTION WIDTH 14.6 % (11.5-20.0); WHITE BLOOD COUNT 8.9 Th/cmm (4.8-10.8)
[2016-10-27 07:10] LABS: HEMATOCRIT 39.8 % (39.0-49.0)
[2016-10-27 07:24] LABS: ANION GAP 9.1 (7.0-16.0); BUN - UREA NITROGEN 16 mg/dL (7-25); CALCIUM SERUM 9.4 mg/dL (8.6-10.3); CARBON DIOXIDE 27.2 mEq/L (21.0-31.0); CHLORIDE 105 mEq/L (98-107); GLUCOSE 112 mg/dL (70-105); POTASSIUM SERUM 3.3 mEq/L (3.5-5.1); SODIUM SERUM 138 mEq/L (136-145)
[2016-10-27] MEDS: Aspirin 81mg Chewable Tab PO SCH (08:58)
[2016-10-27] MEDS: Escitalopram Oxalate 5 mg Tab PO SCH (08:59)
[2016-10-27] MEDS: Atorvastatin Calcium 10 MG TAB PO SCH (08:59)
[2016-10-27] MEDS: Vitamin B Complex w/Vitamin C Tab PO SCH (08:59)
[2016-10-27] MEDS: Potassium Chloride 20 mEq ER Tab PO SCH (08:59)
[2016-10-27] MEDS: D5-0.45NS w/40 mEq KCL 1,000 ML IV SCH (09:01)
[2016-10-27] MEDS ORDERED: Potassium Chloride 20 mEq ER Tab PO ONE (15:22)
[2016-10-28 06:19] LABS: FOLIC ACID >20.0 ng/mL (>3.0)
--- NOTE | 2017-01-04 23:46 | Discharge Summary ---
DATE OF DISCHARGE: 10/27/2016 CHIEF COMPLAINT: Failure to thrive. FINAL DIAGNOSES: Failure to thrive, electrolyte abnormalities, severe hypokalemia, hypertension, morbid obesity. HISTORY: This is a 60-year-old male from nursing facility who was brought in secondary to not eating or not taking medications. The patient noted to have a low potassium in the Emergency Room. The patient is admitted for further management. PHYSICAL EXAMINATION: VITAL SIGNS: Blood pressure ____, respirations 18, pulse 80, temperature 98.6. GENERAL: Elderly male, appears stated age. NECK: Supple. No mass. LUNGS: Equal breath sounds, few rhonchi. HEART: Regular rate and rhythm without appreciable murmur. ABDOMEN: Soft, nontender. EXTREMITIES: Positive excoriations. NEUROLOGIC: Limited. HOSPITAL COURSE: The patient was admitted to medical floor, continued on IV hydration. The patient was also empirically treated with IV antibiotic, secondary to elevated white count, electrolyte abnormalities were adjusted. The patient's condition has improved. The patient is cleared for placement. CONDITION ON DISCHARGE: Fair. DISCHARGE INSTRUCTIONS: The patient to continue current medical regimen. The patient to report back to ER if his condition worsens. JOB# [id number]
== END 2016-10-27 17:30 | DRG 872 ==
LOC: ER 16:03 → TELE 18:25
PROVIDERS: ADMIT Internal Medicine; ATTEND Internal Medicine
DX: A41.9 Sepsis, unspecified organism (principal); E66.01 Morbid (severe) obesity due to excess calories; F03.90 Unspecified dementia, unspecified severity, without behavioral disturbance, psychotic disturbance, mood disturbance, and anxiety; I10 Essential (primary) hypertension; E87.6 Hypokalemia; R62.7 Adult failure to thrive; E11.9 Type 2 diabetes mellitus without complications; J44.9 Chronic obstructive pulmonary disease, unspecified; F32.9 Major depressive disorder, single episode, unspecified; I25.10 Atherosclerotic heart disease of native coronary artery without angina pectoris; E78.5 Hyperlipidemia, unspecified; F17.210 Nicotine dependence, cigarettes, uncomplicated; Z68.28 Body mass index [BMI] 28.0-28.9, adult; Z83.3 Family history of diabetes mellitus; Z82.49 Family history of ischemic heart disease and other diseases of the circulatory system
CPT/HCPCS: 36415-UA; 71010-TC; 80048-TC; 80053-TC; 80061-TC; 81001-TC; 82140-TC; 82607-90; 82746-90; 83036-90; 83735-TC; 83880-TC; 84443-TC; 84484-TC; 85025-TC; 85730-TC; 86592-TC; 90779; 93005; 94640; 94760; J0696; J1644; J1956; J7613; Z7610